=== PATIENT | female | born 1970 | race African-American/Black ===

== ENCOUNTER 2017-05-11 16:56 | Observation (INO) ==
--- NOTE | 2017-05-11 17:29 | Emergency Department Note ---
Disposition Clinical Impression: Elevated d-dimer Chest pain Qualifiers: Chest pain type: unspecified Qualified Code(s): R07.9 - Chest pain, unspecified Syncope Qualifiers: Syncope type: unspecified Qualified Code(s): R55 - Syncope and collapse Disposition: Admitted As Inpatient Condition: Undetermined Time of Disposition: 20:16 General Adult HPI - General Chief complaint: ED Fall Stated complaint: dizzy Time Seen by Provider: 05/11/17 17:11 Source: patient, family Mode of arrival: ambulatory Limitations: no limitations Nursing Notes Reviewed: Yes Vital Signs Reviewed: Yes - History of Present Illness HPI Narrative: 47-year-old female with history of hypertension, hyperlipidemia, diabetes, arrives to [facility] emergency department after having a syncopal episode when she was getting out of bed earlier today. The patient states that she fell on her right side. No LOC. She is complaining of right shoulder pain and right foot pain. The patient does not understand why she blacked out and she says that she is very nervous. The patient states that she has been experiencing a retrosternal chest pain since then. She does have some associated dyspnea. She denies any other complaints at this time. The patient denies any other previous history of [place] but states that she is a very poorly controlled hypertensive and diabetic. The patient denies any other complaints including loss of consciousness, unilateral leg swelling, recent surgeries, recent immobilizations, unilateral weakness, unilateral numbness and tingling. 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[employer] Pain Severity: moderate Pain Scale: 10 Quality: aching Consistency: constant Improves with: nothing Worsens with: nothing Associated symptoms: Reports: chest pain, shortness of breath Treatments Prior to Arrival: none - Related Data Home Medications Medication Instructions Recorded Confirmed Ferrous Sulfate 325 mg PO TID 02/03/15 05/11/17 Linaclotide [Linzess] 145 mcg PO DAILY 02/03/15 05/11/17 Metoprolol [Lopressor] 50 mg PO BID 02/03/15 05/11/17 Pantoprazole Sodium [Protonix] 40 mg PO DAILY 02/03/15 05/11/17 Atorvastatin [Lipitor] 40 mg PO DAILY 07/01/15 05/11/17 Ergocalciferol (VITAMIN D2) 50,000 unit PO QWEEK 07/01/15 05/11/17 [Vitamin D2 (50,000 UNIT)] Lisinopril [Zestril] 10 mg PO DAILY 07/01/15 05/11/17 Fluticasone Propionate Nasal 50 mcg NS DAILY 08/14/15 05/11/17 [Flonase] Polyethylene Glycol 3350 [MiraLAX] 17 gm PO DAILY 08/14/15 05/11/17 Oxycodone HCl/Acetaminophen 1 tab PO Q6HR PRN 05/11/17 05/11/17 [Percocet 5-325 mg Tablet] Previous Rx's Medication Instructions Recorded Albuterol Sulfate [Albuterol 1 - 2 puff IH Q4HR PRN #1 03/27/15 Inhaler] hfa.aer.ad NIFEdipine [Procardia] 20 mg PO TID #30 capsule 07/03/15 Insulin Glargine [Lantus] 25 unit SQ QAM 30 Days mls 08/19/15 Magnesium Oxide [Mag-Ox] 400 mg PO BID #60 tablet 08/19/15 clonazePAM [Klonopin] 1 mg PO TID #30 tablet 08/19/15 Tramadol HCl [Ultram] 50 mg PO Q6HR PRN #20 tab 07/21/16 Allergies Allergy/AdvReac Type Severity Reaction Status Date / Time acetaminophen [From Tylenol] AdvReac Gastrointestinal Verified 05/11/17 17:03 Upset aspirin AdvReac Gastrointestinal Verified 05/11/17 17:03 Upset All systems ED: reviewed and negative except as stated. Constitutional: Denies: fever, chills, weakness ENT ED: Denies: congestion Cardiovascular: Reports: chest pain. Denies: dyspnea on exertion, edema Respiratory: Reports: dyspnea. Denies: cough, wheezes Gastrointestinal: Denies: abdominal pain, nausea, vomiting, diarrhea, constipation, melena Genitourinary: Denies: dysuria Musculoskeletal: Reports: arthralgia. Denies: back pain, neck pain, myalgia Integumentary: Denies: rash Neurological: Denies: headache, numbness Past Medical History - Past Medical History Attestation: Yes The following information was validated with the patient. 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 - Social History Smoking Status: Current every day smoker Smokeless Tobacco Status: No Alcohol use: Reports: none Drug use: Reports: none Physical Exam - General Limitations: no limitations General appearance: alert, in no apparent distress - Head Head exam: atraumatic, normocephalic, normal inspection - Eye Eye exam: Present: normal appearance, PERRL, EOMI - ENT ENT exam: normal exam, normal oropharynx, mucous membranes moist - Neck Neck exam: Present: normal inspection, full ROM, trachea midline - Chest Chest inspection: Present: normal inspection, symmetric chest wall rise - Respiratory Respiratory exam: Present: normal lung sounds bilaterally - Cardiovascular Cardiovascular exam: Present: regular rate, normal rhythm, normal heart sounds - Abdominal Exam Abdominal exam: Present: soft, Non-Tender. Absent: tenderness, distention, guarding, rebound, rigidity - Extremities Exam Extremities exam: Present: normal inspection, full ROM, tenderness (Right shoulder pain, Right heel pain). Absent: pedal edema Course Vital Signs Temperature 98.9 F 05/11/17 16:58 Pulse Rate 84 05/11/17 16:58 Respiratory Rate 16 05/11/17 16:58 Blood Pressure 110/77 05/11/17 16:58 O2 Sat by Pulse Oximetry 97 05/11/17 16:58 Temperature 98.2 F 05/11/17 22:24 Pulse Rate 83 05/11/17 22:24 Respiratory Rate 15 05/11/17 22:24 Blood Pressure 132/89 05/11/17 22:24 O2 Sat by Pulse Oximetry 95 05/11/17 22:24 Oxygen Delivery Oxygen Delivery Room Air Medical Decision Making - [facility] Narrative Medical decision making narrative: Patient's lab work demonstrates an elevated d-dimer. The patient's CBC, BMP, troponin are all negative at this time. EKG demonstrates no acute findings. The patient's elevated d-dimer is concerning for possible PE. Given the patient was experiencing chest pain as well as a syncopal episode. The patient is unable to receive a CTA of the chest due to the patient's poor renal function. The patient was hydrated and started on heparin. We feels though the patient needs to receive a VQ scan but given the time of day and the fact that I am admitting the patient for an ACS rule out with the patient's chest pain given her risk factors and her score greater than 3, I feel as though the patient to be heparinized and receive a VQ scan tomorrow. The patient had no obvious concerns for bleeding at this time. The patient was in agreement with the plan. Her right shoulder x-ray as well as her right foot x-ray demonstrated no acute findings. We will admit the patient to the hospitalist at this time, accepted by - Lab Data Lab results reviewed: Yes I reviewed the patient's lab results. Result diagrams: 05/11/17 17:25 05/11/17 17:25 Lab Results 05/11/17 05/11/17 05/11/17 Range/Units 17:03 17:25 17:25 WBC 10.3 (4.3-11.1) K/mcL RBC 5.61 H (3.82-4.97) M/mcL Hgb 13.0 (11.5-15.4) g/dL Hct 42.7 (35.3-44.9) % MCV 76.1 L (83.0-100.0) fL MCH 23.2 L (28.0-33.3) pg MCHC 30.4 L (31.6-35.5) g/dL RDW 15.9 H (11.5-14.5) % Plt Count 224 (140-400) K/mcL MPV 11.3 (9.4-12.4) fL Immature Gran % 0.2 (0-4) % Seg Neutrophils % 62.6 % Lymphocytes % 30.2 % Monocytes % 4.9 % Eosinophils % 1.6 % Basophils % 0.5 % Neutrophils # 6.5 (1.6-8.9) K/mcL Lymphocytes # 3.1 (0.6-4.6) K/mcL Monocytes # 0.5 (0.0-1.3) K/mcL Eosinophils # 0.2 (0.0-0.6) K/mcL Basophils # 0.1 (0.0-0.2) K/mcL PT (9.4-12.1) Seconds INR APTT (26.0-36.0) Seconds D-Dimer (0-500) ng/mLFEU Sodium 136 (136-145) mEq/L Potassium 3.9 (3.5-4.5) mEq/L Chloride 102 (98-109) mEq/L Carbon Dioxide 21 (19-29) mEq/L BUN 37 H (7-20) mg/dL Creatinine 2.11 H (0.57-1.11) mg/dL Est GFR ( Amer) 30 L (> 60) Est GFR (Non-Af Amer) 25 L (> 60) BUN/Creatinine Ratio 18 (6-26) Glucose 223 H (70-99) mg/dL POC Glucose 238 H (58-89) Calculated Osmolality 298 (280-300) Calcium 9.9 (8.6-10.8) mg/dL Troponin I (0-0.03) ng/mL 05/11/17 05/11/17 Range/Units 17:25 17:28 WBC (4.3-11.1) K/mcL RBC (3.82-4.97) M/mcL Hgb (11.5-15.4) g/dL Hct (35.3-44.9) % MCV (83.0-100.0) fL MCH (28.0-33.3) pg MCHC (31.6-35.5) g/dL RDW (11.5-14.5) % Plt Count (140-400) K/mcL MPV (9.4-12.4) fL Immature Gran % (0-4) % Seg Neutrophils % % Lymphocytes % % Monocytes % % Eosinophils % % Basophils % % Neutrophils # (1.6-8.9) K/mcL Lymphocytes # (0.6-4.6) K/mcL Monocytes # (0.0-1.3) K/mcL Eosinophils # (0.0-0.6) K/mcL Basophils # (0.0-0.2) K/mcL PT 11.6 (9.4-12.1) Seconds INR 1.1 APTT 27.2 (26.0-36.0) Seconds D-Dimer 1149 H (0-500) ng/mLFEU Sodium (136-145) mEq/L Potassium (3.5-4.5) mEq/L Chloride (98-109) mEq/L Carbon Dioxide (19-29) mEq/L BUN (7-20) mg/dL Creatinine (0.57-1.11) mg/dL Est GFR ( Amer) (> 60) Est GFR (Non-Af Amer) (> 60) BUN/Creatinine Ratio (6-26) Glucose (70-99) mg/dL POC Glucose (58-89) Calculated Osmolality (280-300) Calcium (8.6-10.8) mg/dL Troponin I 0.01 (0-0.03) ng/mL - Radiology Data Radiology results reviewed: Yes I reviewed the patient's radiology results. - EKG Data EKG #1 EKG attestation: Yes I reviewed and interpreted this EKG. EKG results narrative: Heart rate 80 bpm. WI interval 176 ms. QTc 420 ms. Normal sinus rhythm. No ST elevation or ST depression noted. EKG is similar in appearance to EKG from 08/14/2015. No acute Changes noted. Attestation Statement - Attestation Attestation: I examined this patient and my medical decision-making was reviewed with the Resident Physician. I agree with the documented findings, disposition and treatment plan as described except to the extent set forth below. Findings consistent with syncope. D-dimer is elevated. We will empirically heparinized , admitted for VQ scan. Concurrently will admit for ACS rule out. She does have evidence of acute kidney injury and cannot undergo contrast mediated pulmonary embolism study.
[2017-05-11 17:43] LABS: Basophils # 0.1 K/mcL (0.0-0.2); Basophils % 0.5 %; Eosinophils # 0.2 K/mcL (0.0-0.6); Eosinophils % 1.6 %; Hematocrit 42.7 % (35.3-44.9); Immature Granulocytes % 0.2 % (0-4); Lymphocytes # 3.1 K/mcL (0.6-4.6); Lymphocytes % 30.2 %; Mean Corpuscular HGB Conc 30.4 g/dL (31.6-35.5); Mean Corpuscular Hemoglobin 23.2 pg (28.0-33.3); Mean Corpuscular Volume 76.1 fL (83.0-100.0); Mean Platelet Volume 11.3 fL (9.4-12.4); Monocytes # 0.5 K/mcL (0.0-1.3); Monocytes % 4.9 %; Neutrophils # 6.5 K/mcL (1.6-8.9); Platelet Count 224 K/mcL (140-400); Red Blood Count 5.61 M/mcL (3.82-4.97); Red Cell Distribution Width 15.9 % (11.5-14.5); Segmented Neutrophils % 62.6 %
[2017-05-11 17:52] LABS: Calcium 9.9 mg/dL (8.6-10.8); Potassium 3.9 mEq/L (3.5-4.5)
[2017-05-11] MEDS ORDERED: 0.9 % Sodium Chloride 1,000 ML IVC ONE (18:39)
[2017-05-11] MEDS ORDERED: *HR* Morphine 2 MG/ML SYRINGE IVP ONE (19:04)
[2017-05-11] MEDS ORDERED: *HR* Heparin 5,000 UNIT/ML VIAL IVP PRN ×2 (19:31)
[2017-05-11] MEDS ORDERED: *HR* Heparin 5,000 UNIT/ML VIAL IVP ONE (19:31)
[2017-05-11 19:44] LABS: INR 1.1; Prothrombin Time 11.6 Seconds (9.4-12.1)
[2017-05-11] MEDS ORDERED: Heparin 25,000 UNIT/500 ML D5W 25,000 UNIT/500 ML MLS IVC SCH (19:45)
[2017-05-11 19:47] LABS: Activated Partial Thrombo Time 27.2 Seconds (26.0-36.0)
[2017-05-12] MEDS ORDERED: D5% in Water 1,000 ML IVC PRN (02:16)
[2017-05-12] MEDS ORDERED: Dextrose Gel 15 GM PO PRN ×2 (02:16)
[2017-05-12] MEDS ORDERED: *HR* Dextrose 50 % in Water (Syg) 50 ML SYRINGE IVP PRN (02:16)
[2017-05-12] MEDS ORDERED: Naloxone 0.4 MG/ML INJ IVP PRN (02:17)
[2017-05-12] MEDS ORDERED: traMADol 50 MG TABLET PO PRN (02:21)
--- NOTE | 2017-05-12 02:26 | Internal Med History&Physical ---
Date of Encounter: 05/12/17 Time of Encounter: 02:24 Assessment and Plan (1) Syncope Current visit: Yes Status: Acute Presented with syncopal episode. Poor historian. Check MRI brain to rule out a stroke or aneurysm and echocardiogram to rule out cardiomyopathy or valvular abnormality, ultrasound of carotids to rule out carotid stenosis.. Check TSH. Check cardiac enzymes. Patient will be started on aspirin. Cardiac enzymes will be checked. Qualifiers: Syncope type: unspecified Qualified Code(s): R55 - Syncope and collapse (2) Diabetes type 2, uncontrolled Current visit: Yes Status: Acute Accu-Chek 4 times a day with sliding scale coverage Qualifiers: Diabetes mellitus complication status: with kidney complications Diabetes mellitus complication detail: with chronic kidney disease Diabetes mellitus longterm insulin use: with longterm use Chronic kidney disease stage: stage 3 (moderate) Qualified Code(s): E11.22 - Type 2 diabetes mellitus with diabetic chronic kidney disease; E11.65 - Type 2 diabetes mellitus with hyperglycemia; 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 Lisinopril and metformin on hold. Qualifiers: Chronic kidney disease stage: stage 3 (moderate) Qualified Code(s): N18.3 - Chronic kidney disease, stage 3 (moderate) Internal Medicine - H&P: HPI Chief complaint: Syncope Admitted From: Home Plans for Post Hospital Care: Home History of present illness: Ms. Mcnulty is a 47 year old female past medical history significant for diabetes hypertension dyslipidemia COPD and CKD. Patient had an episode this morning when she felt dizzy and then passed out. She had similar episode a few years back. Causes not known. She denies any headache neck pain and back pain shortness of breath. She did have mild chest discomfort. As she presented to ER her heart rate was in the 130s and her respiration was also elevated. ER physician was concerned about PE but due to elevated creatinine and did not want to do contrast CT chest. 4 he requested to do a VQ scan in the morning and restart patient on IV heparin for now. Apparently her EKG and cardiac enzymes in the ER are unremarkable. Past Med Surg Social Fam HX - Past Medical History Medical history: arthritis, COPD, diabetes, hepatitis, hyperlipidemia, hypertension, kidney stones, RA, renal disease, other Psychiatric history: anxiety, bipolar, depression, schizophrenia - Past Surgical History Surgical History: , other - Social History Smoking Status: Current every day smoker Packs per day: <1 Smokeless Tobacco Status: No Alcohol use: none Drug use: none - Family History Mother Adopted: No Family Member Ethnicity: Non- Living Status: Hx Family Cardiac Disorders: Yes (CHF) Hx Family Respiratory Disorders: No Hx Family Cancer: No Hx Family GI Disorders: No Father Adopted: No Family Member Ethnicity: Non- Living Status: Hx Family Cardiac Disorders: Yes (ID, HTN) Hx Family Respiratory Disorders: No Hx Family Cancer: No Hx Family GI Disorders: No Hx Family Endocrine Disorder: No Hx Family Neuromuscular Disorders: No Internal Medicine - H&P: Meds Ferrous Sulfate 325 mg PO TID 02/03/15 [History] Linaclotide [Linzess] 145 mcg PO DAILY 02/03/15 [History] Metoprolol [Lopressor] 50 mg PO BID 02/03/15 [History] Pantoprazole Sodium [Protonix] 40 mg PO DAILY 02/03/15 [History] Albuterol Sulfate [Albuterol Inhaler] 1 - 2 puff IH Q4HR PRN #1 hfa.aer.ad 03/27 [Rx] Atorvastatin [Lipitor] 40 mg PO DAILY 07/01/15 [History] Ergocalciferol (VITAMIN D2) [Vitamin D2 (50,000 UNIT)] 50,000 unit PO QWEEK [History] Lisinopril [Zestril] 10 mg PO DAILY 07/01/15 [History] NIFEdipine [Procardia] 20 mg PO TID #30 capsule 07/03/15 [Rx] Fluticasone Propionate Nasal [Flonase] 50 mcg NS DAILY 08/14/15 [History] Polyethylene Glycol 3350 [MiraLAX] 17 gm PO DAILY 08/14/15 [History] Insulin Glargine [Lantus] 25 unit SQ QAM 30 Days mls 08/19/15 [Rx] Magnesium Oxide [Mag-Ox] 400 mg PO BID #60 tablet 08/19/15 [Rx] clonazePAM [Klonopin] 1 mg PO TID #30 tablet 08/19/15 [Rx] Tramadol HCl [Ultram] 50 mg PO Q6HR PRN #20 tab 07/21/16 [Rx] Oxycodone HCl/Acetaminophen [Percocet 5-325 mg Tablet] 1 tab PO Q6HR PRN [History] 3 Allergy/AdvReac Type Severity Reaction Status Date / Time acetaminophen [From Tylenol] AdvReac Gastrointestinal Verified 05/11/17 17:03 Upset aspirin AdvReac Gastrointestinal Verified 05/11/17 17:03 Upset All Systems PM: A 10-system review of systems was performed and is negative for pertinent findings except as documented above in the HPI. - Constitutional Constitutional: no chills, no fever(s), no night sweats - EENT Eyes: no change in vision, no discharge, no pain, no photophobia Ears: no ear discharge, no ear pain, no tinnitus Nose, mouth and throat: no dysphagia, no nasal discharge, no neck pain, no sore throat - Cardiovascular Cardiovascular ROS IM: chest pain, lightheadedness, syncope, no diaphoresis, no dyspnea, no palpitations - Respiratory Respiratory: no cough, no dyspnea, no wheezing, no excessive phlegm production - Gastrointestinal Gastrointestinal: no abdominal pain, no diarrhea, no hematemesis, no hematochezia, no melena, no nausea, no vomiting - Genitourinary Genitourinary: no change in urinary stream, no dysuria, no flank pain, no hematuria - Musculoskeletal Musculoskeletal ROS IM: no numbness, no tingling - Integumentary Integumentary IM: no rash, no unusual bruising - Neurological Neurological ROS: no confusion, no convulsions, no focal weakness, no numbness, no tingling, no tremor(s) - Hematologic/Lymphatic Hematologic/Lymphatic: no easy bruising - Constitutional Vitals: Temp Pulse Resp BP Pulse Ox 98.2 F 83 15 132/89 95 05/11/17 22:24 05/11/17 22:24 05/11/17 22:24 05/11/17 22:24 05/11/17 22:24 General appearance: Present: A&O X 3, morbidly obese, answers questions appropriately - Head Head exam: Present: atraumatic, normocephalic - Eye Eye exam: Present: PERRL, conjuntiva pink, sclera anicteric Pupils: Present: PERRL - Neck Neck exam general surgery: Present: supple, trachea midline. Absent: lymphadenopathy - Respiratory Respiratory exam: Present: CTAB. Absent: accessory muscle use, rales, rhonchi, wheezes - Cardiovascular Cardiovascular exam: Present: RRR, +S1, +S2. Absent: diastolic murmur, gallop, rubs, systolic murmur - GI/Abdominal GI/Abdominal exam: Present: normal bowel sounds, soft, no peritoneal signs. Absent: distended, tenderness - Extremities Exam Extremities exam: Present: warm, radial pulses palpable and symmetrical. Absent : calf tenderness, cyanotic, pedal edema - Neurological Exam Neurological exam: Present: CN II-XII intact, oriented X3, no focal deficits. Absent: pronater drift, facial droop, speech deficit - Skin Skin exam: Present: dry, intact Internal Med - H&P Results - Labs CBC & Chem 7: 05/11/17 17:25 05/11/17 17:25
[2017-05-12 03:39] LABS: Eosinophils % 2.9 %; Immature Granulocytes % 0.2 % (0-4); Mean Corpuscular Volume 76.2 fL (83.0-100.0)
[2017-05-12 03:41] LABS: Basophils # 0.1 K/mcL (0.0-0.2); Basophils % 0.8 %; Eosinophils # 0.3 K/mcL (0.0-0.6); Hematocrit 37.2 % (35.3-44.9); Hemoglobin 11.4 g/dL (11.5-15.4); Immature Platelets 12.8 % (1.1-6.1); Lymphocytes # 4.5 K/mcL (0.6-4.6); Lymphocytes % 43.3 %; Mean Corpuscular HGB Conc 30.6 g/dL (31.6-35.5); Mean Corpuscular Hemoglobin 23.4 pg (28.0-33.3); Monocytes # 0.6 K/mcL (0.0-1.3); Monocytes % 5.4 %; Neutrophils # 4.9 K/mcL (1.6-8.9); Platelet Count 188 K/mcL (140-400); Red Blood Count 4.88 M/mcL (3.82-4.97); Red Cell Distribution Width 15.6 % (11.5-14.5); Segmented Neutrophils % 47.4 %
[2017-05-12] MEDS: Insulin LISPRO 300 UNITS/3 ML VIAL SQ SCH ×6 (03:45→20:38)
[2017-05-12] MEDS: clonazePAM 1 MG TABLET PO SCH ×2 (03:46→07:56)
[2017-05-12 03:51] LABS: Hemoglobin A1C 7.8 %
[2017-05-12 04:00] LABS: Potassium 3.7 mEq/L (3.5-4.5)
[2017-05-12 04:01] LABS: Albumin 2.9 g/dL (3.5-5.0); Albumin/Globulin Ratio 0.6 (1.1-2.2); Bilirubin,Total 0.3 mg/dL (0.2-1.2); Calcium 9.1 mg/dL (8.6-10.8); Globulin 4.6 g/dL (2.4-3.5); Total Protein 7.5 g/dL (6.0-8.3)
[2017-05-12 04:03] LABS: Platelet Estimate Normal (Normal)
[2017-05-12 04:04] LABS: Poikilocytosis 1+ (Not Present); Schistocytes 1+ (Not Present)
[2017-05-12 04:12] LABS: Thyroid Stimulating Hormone 0.544 mcIU/mL (0.350-4.840)
[2017-05-12 07:09] LABS: Activated Partial Thrombo Time > 360.0 Seconds (26.0-36.0)
[2017-05-12 07:22] LABS: Heparin anti-factor XA UFH 1.61 IU/mL (0.30-0.70)
[2017-05-12] MEDS: Magnesium Oxide 400 MG TABLET PO SCH ×2 (07:56→20:32)
[2017-05-12] MEDS: Fluticasone Propionate Nasal 50 MCG/SPRAY BOTTLE NS SCH (08:01)
[2017-05-12] MEDS: NIFEdipine 10 MG CAPSULE PO SCH ×3 (08:16→20:32)
[2017-05-12] MEDS ORDERED: clonazePAM 1 MG TABLET PO PRN (15:47)
--- NOTE | 2017-05-12 16:11 | Event Note ---
Date of Encounter: 05/12/17 Time of Encounter: 14:35 Patient is a morbidly obese 47y/o female admitted for evaluation of syncope Pt underwent MRI head, 2D echo, carotid dopplers V/Q scan was ordered due to elevated Ddimer, which reported low probability for PE due to which heparin gtt has been discontinued She is noted to be on multiple agents for BP control, all of which have been placed on hold, as her BP has remained within normal limits despite holding these medications. Pt may have had a syncopal episode secondary to drug induced hypotension Will restart all of patient's other home medications SHERIF resolved, renal function back to baseline Pt reports of diffuse weakness. Will obtain PT evaluation
[2017-05-12] MEDS: Gabapentin 400 MG CAPSULE PO SCH ×2 (17:54→20:38)
[2017-05-12] MEDS: Insulin DETEMIR 100 UNIT/ML X5UNITS SQ SCH (17:54)
[2017-05-12] MEDS: *HR* OxyCODONE/APAP 5/325 TABLET PO PRN (18:08)
--- NOTE | 2017-05-12 18:52 | Electrocardiograph Report ---
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
[2017-05-12] MEDS: *HR* Heparin 5,000 UNIT/ML VIAL SQ SCH (20:36)
[2017-05-12] MEDS ORDERED: (Loxapine Succinate [Loxapine] 25 MG) PO SCH (21:00)
[2017-05-12] MEDS ORDERED: traZODone 50 MG TABLET PO SCH (21:00)
[2017-05-13] MEDS: *HR* OxyCODONE/APAP 5/325 TABLET PO PRN ×3 (02:26→18:13)
[2017-05-13] MEDS: *HR* Heparin 5,000 UNIT/ML VIAL SQ SCH ×2 (06:10→18:08)
[2017-05-13 06:11] LABS: Basophils # 0.1 K/mcL (0.0-0.2); Basophils % 0.6 %; Eosinophils # 0.2 K/mcL (0.0-0.6); Eosinophils % 2.2 %; Immature Granulocytes % 0.2 % (0-4); Lymphocytes % 35.2 %; Mean Corpuscular HGB Conc 29.7 g/dL (31.6-35.5); Mean Corpuscular Hemoglobin 22.7 pg (28.0-33.3); Mean Corpuscular Volume 76.4 fL (83.0-100.0); Monocytes # 0.4 K/mcL (0.0-1.3); Neutrophils # 4.9 K/mcL (1.6-8.9); Platelet Count 184 K/mcL (140-400); Red Blood Count 4.84 M/mcL (3.82-4.97); Red Cell Distribution Width 15.5 % (11.5-14.5); Segmented Neutrophils % 56.8 %
[2017-05-13 06:23] LABS: Albumin 2.8 g/dL (3.5-5.0); Albumin/Globulin Ratio 0.6 (1.1-2.2); Bilirubin,Total 0.3 mg/dL (0.2-1.2); Calcium 9.1 mg/dL (8.6-10.8); Globulin 4.5 g/dL (2.4-3.5); Magnesium 1.4 mg/dL (1.6-2.6); Platelet Estimate Normal (Normal); Potassium 4.3 mEq/L (3.5-4.5); Total Protein 7.3 g/dL (6.0-8.3)
[2017-05-13] MEDS: Gabapentin 400 MG CAPSULE PO SCH ×2 (08:26→18:10)
[2017-05-13] MEDS: NIFEdipine 10 MG CAPSULE PO SCH ×2 (08:26→18:10)
[2017-05-13] MEDS: Insulin LISPRO 300 UNITS/3 ML VIAL SQ SCH ×3 (08:26→17:51)
[2017-05-13] MEDS: Magnesium Oxide 400 MG TABLET PO SCH (08:27)
[2017-05-13] MEDS: Fluticasone Propionate Nasal 50 MCG/SPRAY BOTTLE NS SCH (08:28)
[2017-05-13] MEDS: Insulin DETEMIR 100 UNIT/ML X5UNITS SQ SCH (08:33)
[2017-05-13 11:53] VITALS: BP 110/75
--- NOTE | 2017-05-13 11:58 | Discharge Summary ---
Date of Encounter: 05/13/17 Time of Encounter: 11:20 - Discharge Diagnosis (1) Syncope Priority: Primary Status: Resolved Qualifiers: Syncope type: unspecified Qualified Code(s): R55 - Syncope and collapse (2) Chronic kidney disease Priority: Secondary Status: Chronic Qualifiers: Chronic kidney disease stage: stage 3 (moderate) Qualified Code(s): N18.3 - Chronic kidney disease, stage 3 (moderate) (3) Diabetes type 2, uncontrolled Priority: Secondary Status: Chronic Qualifiers: Diabetes mellitus complication status: with kidney complications Diabetes mellitus complication detail: with chronic kidney disease Diabetes mellitus snf insulin use: with terminal operator use Chronic kidney disease stage: stage 3 (moderate) Qualified Code(s): E11.22 - Type 2 diabetes mellitus with diabetic chronic kidney disease; E11.65 - Type 2 diabetes mellitus with hyperglycemia; Z79.4 - correction (current) use of insulin; E11.65 - Type 2 diabetes mellitus with hyperglycemia; E11.65 - Type 2 diabetes mellitus with hyperglycemia; E11.65 - Type 2 diabetes mellitus with hyperglycemia; N18.3 - Chronic kidney disease, stage 3 (moderate); N18.3 - Chronic kidney disease, stage 3 (moderate); Z79.4 - terminologist (current) use of insulin; Z79.4 - correction (current) use of insulin; Z79.4 - correction (current) use of insulin (4) DVT prophylaxis Priority: Secondary Status: Acute (5) Morbid obesity Priority: Secondary Status: Chronic - Discharge Medications Home Medications: Ferrous Sulfate 325 mg PO BID 02/03/15 [History] Linaclotide [Linzess] 145 mcg PO DAILY 02/03/15 [History] Metoprolol [Lopressor] 50 mg PO BID 02/03/15 [History] Pantoprazole Sodium [Protonix] 40 mg PO DAILY 02/03/15 [History] Albuterol Sulfate [Albuterol Inhaler] 1 - 2 puff IH Q4HR PRN #1 hfa.aer.ad 03/27 [Rx] Atorvastatin [Lipitor] 40 mg PO HS 07/01/15 [History] Lisinopril [Zestril] 10 mg PO DAILY 07/01/15 [History] Fluticasone Propionate Nasal [Flonase] 50 mcg NS DAILY 08/14/15 [History] Polyethylene Glycol 3350 [MiraLAX] 17 gm PO DAILY 08/14/15 [History] Oxycodone HCl/Acetaminophen [Percocet 5-325 mg Tablet] 1 tab PO Q8H PRN [History] Albuterol Neb [Proventil Neb] 2.5 mg IH TID PRN 05/12/17 [History] Cholecalciferol (D-3) [Vitamin D] 1,000 unit PO DAILY 05/12/17 [History] Cyclobenzaprine [Flexeril] 10 mg PO TID PRN 05/12/17 [History] Docusate [Colace] 100 mg PO DAILY PRN 05/12/17 [History] Furosemide [Lasix] 40 mg PO DAILY PRN 05/12/17 [History] Gabapentin [Neurontin] 800 mg PO TID 05/12/17 [History] Insulin ASPART [Novolog Flexpen] 15 unit SQ TID 05/12/17 [History] Insulin Glargine [Lantus] 40 unit SQ QAM 05/12/17 [History] Loxapine Succinate [Loxapine] 25 mg PO HS 05/12/17 [History] Magnesium Oxide [Mag-Ox] 400 mg PO DAILY 05/12/17 [History] NIFEdipine [Nifedipine] 20 mg PO TID 05/12/17 [History] Ondansetron ODT [Zofran ODT] 4 mg PO Q8H PRN 05/12/17 [History] Potassium Chloride [Klor-Con 10] 10 meq PO DAILY 05/12/17 [History] clonazePAM [Klonopin] 1 mg PO QID PRN 05/12/17 [History] hydroCHLOROthiazide [Hydrochlorothiazide] 25 mg PO DAILY 05/12/17 [History] traZODone [TraZODone] 50 mg PO HS 05/12/17 [History] Allergies/Adverse Reactions: 3 Allergy/AdvReac Type Severity Reaction Status Date / Time acetaminophen [From Tylenol] AdvReac Gastrointestinal Verified 05/11/17 17:03 Upset aspirin AdvReac Gastrointestinal Verified 05/11/17 17:03 Upset Procedures/tests Complete & Pending: Procedures Performed prior 72 hours Category Date Time Status VQ Scan [NM pul vent and perfuse] [NM] Routine Exams 05/12/17 02:23 Completed MR head/brain wo con [MR] Routine MRI 05/12/17 02:16 Completed EV carotid duplex imaging BI Routine Y 05/12/17 02:14 Completed EV echocardiogram Routine Y 05/12/17 02:14 Completed Date of admission: 05/11/17 20:57 Primary care physician: Peyman Neves DO Consults: 05/12/17 16:10 Consult to Physical Therapy [CONS] Routine Comment: Evaluate, develop and implement POC Reason for Consult: evaluate for placement Discharging clinician: Michelle Higgins Anticipated date of discharge: 05/13/17 - Patient Status Disposition: Home, Self-Care Condition: Good Functional capacity at discharge: independent ambulation Overall status at discharge: patient is back to baseline - Discharge Instructions Follow Up With: Stephen Mayorga [Non-Partnered Physician] - 05/23/17 9:00 am Additional Instructions: Please follow up with your primary care physician within five days after your discharge from the hospital. Please closely monitor your blood pressure at home. Continue to hold lisinopril until your follow up with your primary care physician. Please hold your blood pressure medications if you are noted to have systolic blood pressure less than 100. Resume all your other home medications as per your primary care physician. - Diet and Activity Activity: increase activity as tolerated Diet: low salt diet Hospital course: Ms. Mcnulty is a 47 year old female with PMH of arthritis, DM, morbid obesity, HTN, HLD, CKD, COPD who was admitted for syncope. Her cardio and neuro work up was negative however was noted to have SHERIF On CKD due to which home dose of Lisinopril was held. Her renal function returned to baseline. No recurrent syncopal episodes reported. Pt may have had hypotension induced syncope as her BP has remained within acceptable range despite holding Lisinopril. Pt was evaluated by physical therapy and home health was recommended, however patient refused home health services. At this time she is hemodynamically stable and will be discharged to home with follow up with PCP. She was also noted to have elevated D-dimer and was initially started on heaprin gtt, V/Q scan was negative for PE and heparin was discontinued. - Time Spent with Patient Total time spent providing and/or coordinating discharge services: Less than 30 minutes - Constitutional Vitals: Temp Pulse Resp BP Pulse Ox 98.2 F 77 16 110/75 93 05/13/17 11:49 05/13/17 11:49 05/13/17 11:49 05/13/17 11:49 05/13/17 11:49 General appearance: Present: A&O X 3, morbidly obese, no acute distress, answers questions appropriately - Head Head exam: Present: atraumatic, normocephalic - Eye Eye exam: Present: conjuntiva pink, sclera anicteric - Respiratory Respiratory exam: Present: CTAB. Absent: respiratory distress, wheezes - Cardiovascular Cardiovascular exam: Present: RRR, +S1, +S2. Absent: diastolic murmur, gallop, rubs, systolic murmur - GI/Abdominal GI/Abdominal exam: Present: normal bowel sounds, soft, no peritoneal signs. Absent: distended, tenderness - Extremities Exam Extremities exam: Present: warm, radial pulses palpable and symmetrical. Absent : calf tenderness, cyanotic, pedal edema - Neurological Exam Neurological exam: Present: alert, oriented X3
--- NOTE | 2017-05-13 18:42 | Physician Discharge Referral ---
Home Health/Hosp Referral Info Transfer to: Home Health Provider in Charge Post Discharge: PCP - Diagnosis (1) Syncope Priority: Primary Status: Resolved (2) Chronic kidney disease Priority: Secondary Status: Chronic (3) Diabetes type 2, uncontrolled Priority: Secondary Status: Chronic (4) DVT prophylaxis Priority: Secondary Status: Acute (5) Morbid obesity Priority: Secondary Status: Chronic - Respiratory Orders Smoking Cessation: Smoking cessation has been advised. For more information, call the [place] Tobacco Quit Line at 5-664-ANWD-NOW. - Services Needed Following services are medically necessary services: Home Health Aide, Physical Therapy, Occupational Therapy - Transfer Medications Home Medications: Ferrous Sulfate 325 mg PO BID 02/03/15 [History] Linaclotide [Linzess] 145 mcg PO DAILY 02/03/15 [History] Metoprolol [Lopressor] 50 mg PO BID 02/03/15 [History] Pantoprazole Sodium [Protonix] 40 mg PO DAILY 02/03/15 [History] Albuterol Sulfate [Albuterol Inhaler] 1 - 2 puff IH Q4HR PRN #1 hfa.aer.ad 03/27 [Rx] Atorvastatin [Lipitor] 40 mg PO HS 07/01/15 [History] Lisinopril [Zestril] 10 mg PO DAILY 07/01/15 [History] Fluticasone Propionate Nasal [Flonase] 50 mcg NS DAILY 08/14/15 [History] Polyethylene Glycol 3350 [MiraLAX] 17 gm PO DAILY 08/14/15 [History] Oxycodone HCl/Acetaminophen [Percocet 5-325 mg Tablet] 1 tab PO Q8H PRN [History] Albuterol Neb [Proventil Neb] 2.5 mg IH TID PRN 05/12/17 [History] Cholecalciferol (D-3) [Vitamin D] 1,000 unit PO DAILY 05/12/17 [History] Cyclobenzaprine [Flexeril] 10 mg PO TID PRN 05/12/17 [History] Docusate [Colace] 100 mg PO DAILY PRN 05/12/17 [History] Furosemide [Lasix] 40 mg PO DAILY PRN 05/12/17 [History] Gabapentin [Neurontin] 800 mg PO TID 05/12/17 [History] Insulin ASPART [Novolog Flexpen] 15 unit SQ TID 05/12/17 [History] Insulin Glargine [Lantus] 40 unit SQ QAM 05/12/17 [History] Loxapine Succinate [Loxapine] 25 mg PO HS 05/12/17 [History] Magnesium Oxide [Mag-Ox] 400 mg PO DAILY 05/12/17 [History] NIFEdipine [Nifedipine] 20 mg PO TID 05/12/17 [History] Ondansetron ODT [Zofran ODT] 4 mg PO Q8H PRN 05/12/17 [History] Potassium Chloride [Klor-Con 10] 10 meq PO DAILY 05/12/17 [History] clonazePAM [Klonopin] 1 mg PO QID PRN 05/12/17 [History] hydroCHLOROthiazide [Hydrochlorothiazide] 25 mg PO DAILY 05/12/17 [History] traZODone [TraZODone] 50 mg PO HS 05/12/17 [History] Allergies/Adverse Reactions: 3 Allergy/AdvReac Type Severity Reaction Status Date / Time acetaminophen [From Tylenol] AdvReac Gastrointestinal Verified 05/11/17 17:03 Upset aspirin AdvReac Gastrointestinal Verified 05/11/17 17:03 Upset Certification: Further, I certify that my clinical findings support that this patient is homebound (i.e. absences from home require considerable and taxing effort and are for medical reasons or buddhist services or infrequently or short duration when for other reasons) because: Homebound Reason: Patient requires assistance of a person or device to safely leave home Attestation: My signature below is to certify that this patient is under my care and that I, or nurse practitioner, or a physician's news assistant working with me, has a face-to -face encounter with this patient.
== END 2017-05-13 18:50 | disposition home or self-care (01) ==
LOC: EMEROO 16:56 → 2NENU 16:56
PROVIDERS: ADMIT Internal Medicine; ATTEND Internal Medicine

== ENCOUNTER 2019-07-20 16:15 | Observation (INO) ==
[2019-07-20] MEDS ORDERED: Aspirin 325 MG TABLET PO ONE (16:38)
[2019-07-20] MEDS ORDERED: Isovue-370 500 ML BOTTLE IVP ONE ×2 (16:38→16:48)
[2019-07-20] MEDS ORDERED: *HR* FentaNYL (PF) 100 MCG/2 ML VIAL IVP ONE (16:46)
[2019-07-20] MEDS ORDERED: 0.9 % Sodium Chloride 1,000 ML IVC SCH ×2 (17:00→22:30)
[2019-07-20 17:02] LABS: Basophils % 0.4 %; Eosinophils % 2.4 %; Hematocrit 43.1 % (35.3-44.9); Hemoglobin 12.8 g/dL (11.5-15.4); Immature Granulocytes % 0.3 % (0-4); Lymphocytes % 33.7 %; Mean Corpuscular HGB Conc 29.7 g/dL (31.6-35.5); Mean Corpuscular Hemoglobin 22.3 pg (28.0-33.3); Mean Corpuscular Volume 75.2 fL (83.0-100.0); Monocytes # 0.5 K/mcL (0.0-1.3); Monocytes % 4.9 %; Platelet Count 230 K/mcL (140-400); Red Blood Count 5.73 M/mcL (3.82-4.97); Segmented Neutrophils % 58.3 %; White Blood Count 10.2 K/mcL (4.3-11.1)
[2019-07-20 17:11] LABS: Eosinophils # 0.2 K/mcL (0.0-0.6); Lymphocytes # 3.4 K/mcL (0.6-4.6)
[2019-07-20 17:14] LABS: Platelet Estimate Normal (Normal)
[2019-07-20 17:16] LABS: Hypochromasia Present (Not Present); Microcytosis Present (Not Present); Schistocytes 1+ (Not Present)
[2019-07-20 17:58] LABS: BUN/Creatinine Ratio 21 (6-26); Blood Urea Nitrogen 39 mg/dL (6-20); Calcium 9.7 mg/dL (8.6-10.3); Carbon Dioxide 22 mEq/L (23-29); Chloride 103 mEq/L (98-107); Glucose 284 mg/dL (70-105); Osmolality,Calculated 296 (280-300); Potassium 4.2 mEq/L (3.5-5.1); Sodium 133 mEq/L (136-145); eGFR For African Americans 35 (> 60); eGFR For Non-African Americans 29 (> 60)
[2019-07-20 18:22] LABS: Troponin I < 0.03 ng/mL (< 0.04)
[2019-07-20] MEDS ORDERED: Naloxone 0.4 MG/ML INJ IVP PRN (22:16)
[2019-07-20] MEDS ORDERED: Insulin DETEMIR 100 UNIT/ML X5UNITS SQ SCH (23:45)
[2019-07-20] MEDS ORDERED: D5% in Water 1,000 ML IVC PRN (23:48)
[2019-07-20] MEDS ORDERED: Dextrose Gel 15 GM/37.5 ML TUBE PO PRN ×2 (23:48)
[2019-07-20] MEDS ORDERED: *HR* Dextrose 50 % in Water (Syg) 50 ML SYRINGE IVP PRN (23:48)
[2019-07-21] MEDS ORDERED: *HR* OxyCODONE ER (12 HR) 10 MG TABLET PO PRN ×2 (00:40→02:19)
[2019-07-21] MEDS ORDERED: Albuterol 2.5 MG/3 ML NEBULIZER IH PRN (00:49)
[2019-07-21] MEDS ORDERED: Melatonin 3 MG TABLET PO SCH (02:15)
[2019-07-21] MEDS: Gabapentin 400 MG CAPSULE PO SCH ×2 (02:24→09:30)
[2019-07-21] MEDS: Insulin LISPRO 300 UNITS/3 ML VIAL SQ SCH ×4 (02:26→17:11)
[2019-07-21 06:36] LABS: Prothrombin Time 11.6 Seconds (9.4-12.1)
[2019-07-21 06:38] LABS: Activated Partial Thrombo Time 32.6 Seconds (26.0-36.0)
[2019-07-21 06:43] LABS: Basophils % 0.8 %; Monocytes % 6.5 %
[2019-07-21 06:44] LABS: Basophils # 0.1 K/mcL (0.0-0.2); Eosinophils # 0.3 K/mcL (0.0-0.6); Eosinophils % 3.6 %; Hematocrit 41.1 % (35.3-44.9); Hemoglobin 12.3 g/dL (11.5-15.4); Immature Granulocytes % 0.1 % (0-4); Immature Platelets 9.5 % (1.1-6.1); Lymphocytes # 3.4 K/mcL (0.6-4.6); Lymphocytes % 38.2 %; Mean Corpuscular HGB Conc 29.9 g/dL (31.6-35.5); Mean Corpuscular Hemoglobin 21.9 pg (28.0-33.3); Mean Corpuscular Volume 73.3 fL (83.0-100.0); Monocytes # 0.6 K/mcL (0.0-1.3); Neutrophils # 4.5 K/mcL (1.6-8.9); Platelet Count 195 K/mcL (140-400); Red Blood Count 5.61 M/mcL (3.82-4.97); Segmented Neutrophils % 50.8 %; White Blood Count 8.9 K/mcL (4.3-11.1)
[2019-07-21] MEDS: *HR* Heparin 5,000 UNIT/ML VIAL SQ SCH ×2 (06:50→14:55)
[2019-07-21 06:56] LABS: Alanine Aminotransferase 30 Units/L (7-52); Albumin 3.6 g/dL (3.5-5.7); Albumin/Globulin Ratio 0.9 (1.1-2.2); Alkaline Phosphatase 67 Units/L (34-104); Aspartate Amino Transferase 21 Units/L (13-39); BUN/Creatinine Ratio 23 (6-26); Bilirubin,Total 0.3 mg/dL (0.3-1.0); Blood Urea Nitrogen 37 mg/dL (6-20); Calcium 9.3 mg/dL (8.6-10.3); Carbon Dioxide 22 mEq/L (23-29); Chloride 106 mEq/L (98-107); Glucose 162 mg/dL (70-105); Osmolality,Calculated 300 (280-300); Potassium 4.3 mEq/L (3.5-5.1); Sodium 139 mEq/L (136-145); Total Protein 7.6 g/dL (6.4-8.9); Troponin I < 0.03 ng/mL (< 0.04); eGFR For African Americans 42 (> 60); eGFR For Non-African Americans 34 (> 60)
[2019-07-21] MEDS ORDERED: Perflutren Lipid Microsphere 1.3 ML in 0.9 % Sodium Chloride 8.7 ML IVP ONE (07:17)
[2019-07-21 07:33] LABS: Anisocytosis 1+ (Not Present)
[2019-07-21 07:34] LABS: Hypochromasia Present (Not Present); Microcytosis Present (Not Present); Platelet Estimate Normal (Normal)
[2019-07-21] MEDS ORDERED: Nicotine 21 MG PATCH.TD24 TD SCH (11:00)
[2019-07-21] MEDS ORDERED: *HR* Dextrose 50 % in Water (Syg) 50 ML SYRINGE IVP PRN (12:01)
[2019-07-21] MEDS ORDERED: Dextrose Gel 15 GM/37.5 ML TUBE PO PRN ×2 (12:01)
[2019-07-21] MEDS ORDERED: D5% in Water 1,000 ML IVC PRN (12:01)
[2019-07-21] MEDS ORDERED: Fluticasone Propionate Nasal 50 MCG/SPRAY BOTTLE NS PRN (12:06)
[2019-07-21] MEDS ORDERED: Clotrimazole 1% CRM 15 GM TUBE TP PRN (12:06)
[2019-07-21] MEDS ORDERED: hydrOXYzine pamoate 25 MG CAPSULE PO PRN (12:06)
[2019-07-21] MEDS ORDERED: Ammonium Lactate 30 APPL/225 GM BOTTLE TP PRN (12:06)
[2019-07-21] MEDS ORDERED: Furosemide 40 MG TABLET PO PRN (12:06)
[2019-07-21] MEDS ORDERED: BuPROPion XL (24 HR) 150 MG TABLET PO SCH (12:15)
[2019-07-21] MEDS ORDERED: Gabapentin 300 MG CAPSULE PO SCH (15:00)
[2019-07-21] MEDS ORDERED: NIFEdipine 10 MG CAPSULE PO SCH (15:00)
[2019-07-21 17:10] VITALS: BP 106/63
[2019-07-21] MEDS ORDERED: Insulin LISPRO 300 UNITS/3 ML VIAL SQ SCH (21:00)
[2019-07-22] MEDS ORDERED: hydroCHLOROthiazide 25 MG TABLET PO SCH (09:00)
[2019-07-22] MEDS ORDERED: Venlafaxine XR (24 HR) 75 MG CAP.ER.24H PO SCH (09:00)
[2019-07-22] MEDS ORDERED: Prenatal Vit/FA 1 EACH TABLET PO SCH (09:00)
[2019-07-22] MEDS ORDERED: Cholecalciferol (D-3) 1,000 UNIT (25MCG) TABLET PO SCH (09:00)
[2019-07-22] MEDS ORDERED: Doxycycline 100 MG CAPSULE PO SCH (12:00)
== END 2019-07-21 18:55 | disposition home or self-care (01) ==
LOC: 2ANU 16:15 → EMEROOARM 16:15 → SUATTDRO 20:53 → 2ANU 22:06
PROVIDERS: ADMIT Internal Medicine; ATTEND Family Medicine

== ENCOUNTER 2019-07-28 16:22 | Observation (INO) ==
[2019-07-28] MEDS ORDERED: 0.9 % Sodium Chloride 500 ML IVC ONE (16:30)
[2019-07-28] MEDS ORDERED: Hydrocortisone Sodium Succ 100 MG/2 ML VIAL IVP ONE (16:51)
[2019-07-28 16:57] LABS: Immature Granulocytes % 0.2 % (0-4); Red Cell Distribution Width 15.9 % (11.5-14.5)
[2019-07-28 16:59] LABS: Basophils # 0.1 K/mcL (0.0-0.2); Basophils % 0.8 %; Eosinophils # 0.4 K/mcL (0.0-0.6); Eosinophils % 4.3 %; Immature Platelets 7.6 % (1.1-6.1); Lymphocytes # 3.4 K/mcL (0.6-4.6); Lymphocytes % 33.4 %; Mean Corpuscular HGB Conc 29.7 g/dL (31.6-35.5); Mean Corpuscular Volume 74.1 fL (83.0-100.0); Monocytes % 5.4 %; Neutrophils # 5.7 K/mcL (1.6-8.9); Platelet Count 192 K/mcL (140-400); Red Blood Count 4.99 M/mcL (3.82-4.97); Segmented Neutrophils % 55.9 %; White Blood Count 10.1 K/mcL (4.3-11.1)
[2019-07-28 17:05] LABS: Monocytes # 0.6 K/mcL (0.0-1.3); Prothrombin Time 11.8 Seconds (9.4-12.1)
[2019-07-28 17:07] LABS: Activated Partial Thrombo Time 30.9 Seconds (26.0-36.0)
[2019-07-28 17:20] LABS: BUN/Creatinine Ratio 21 (6-26); Blood Urea Nitrogen 43 mg/dL (6-20); Calcium 9.6 mg/dL (8.6-10.3); Carbon Dioxide 20 mEq/L (23-29); Chloride 107 mEq/L (98-107); Glucose 190 mg/dL (70-105); Osmolality,Calculated 298 (280-300); Potassium 4.5 mEq/L (3.5-5.1); Sodium 136 mEq/L (136-145); Troponin I < 0.03 ng/mL (< 0.04); eGFR For African Americans 31 (> 60); eGFR For Non-African Americans 26 (> 60)
[2019-07-28] MEDS: 0.9 % Sodium Chloride 1,000 ML IVC ONE ×2 (17:34→17:48)
[2019-07-28] MEDS ORDERED: Aspirin 325 MG TABLET PO ONE (19:07)
[2019-07-28] MEDS ORDERED: Naloxone 0.4 MG/ML INJ IVP PRN (19:42)
[2019-07-28] MEDS ORDERED: D5% in Water 1,000 ML IVC PRN (19:45)
[2019-07-28] MEDS ORDERED: Dextrose Gel 15 GM/37.5 ML TUBE PO PRN ×2 (19:45)
[2019-07-28] MEDS ORDERED: 0.9 % Sodium Chloride 1,000 ML IVC SCH (19:45)
[2019-07-28] MEDS ORDERED: Insulin LISPRO 300 UNITS/3 ML VIAL SQ SCH (19:45)
[2019-07-28] MEDS ORDERED: *HR* Dextrose 50 % in Water (Syg) 50 ML SYRINGE IVP PRN (19:45)
[2019-07-28] MEDS ORDERED: Albuterol 2.5 MG/3 ML NEBULIZER IH PRN (20:26)
[2019-07-28] MEDS: Insulin DETEMIR 100 UNIT/ML X5UNITS SQ SCH (23:01)
[2019-07-28] MEDS ORDERED: Melatonin 3 MG TABLET PO PRN (23:31)
[2019-07-28] MEDS ORDERED: Fluticasone Propionate Nasal 50 MCG/SPRAY BOTTLE NS PRN (23:31)
[2019-07-28] MEDS ORDERED: Ammonium Lactate 30 APPL/225 GM BOTTLE TP PRN (23:31)
[2019-07-29] MEDS: *HR* Heparin 5,000 UNIT/ML VIAL SQ SCH ×4 (01:09→21:19)
[2019-07-29 01:44] LABS: Hemoglobin 11.1 g/dL (11.5-15.4); Mean Corpuscular Hemoglobin 22.4 pg (28.0-33.3); Mean Corpuscular Volume 74.7 fL (83.0-100.0); Platelet Count 188 K/mcL (140-400); Red Blood Count 4.95 M/mcL (3.82-4.97); Red Cell Distribution Width 15.9 % (11.5-14.5); White Blood Count 9.5 K/mcL (4.3-11.1)
[2019-07-29 02:01] LABS: Calcium 9.1 mg/dL (8.6-10.3)
[2019-07-29] MEDS ORDERED: Pantoprazole 40 MG VIAL IVP ONE (02:20)
[2019-07-29] MEDS ORDERED: Insulin LISPRO 300 UNITS/3 ML VIAL SQ SCH ×2 (06:00→21:00)
[2019-07-29] MEDS ORDERED: Acetaminophen 325 MG TABLET PO PRN (06:25)
[2019-07-29] MEDS ORDERED: Regadenoson 0.4 MG/5 ML SYRINGE IVP ONE (06:53)
[2019-07-29] MEDS: Cholecalciferol (D-3) 1,000 UNIT (25MCG) TABLET PO SCH (09:18)
[2019-07-29] MEDS: Venlafaxine XR (24 HR) 75 MG CAP.ER.24H PO SCH (09:19)
[2019-07-29] MEDS: Ondansetron 4 MG/2 ML VIAL IVP PRN ×2 (09:59→16:20)
[2019-07-29] MEDS: Insulin LISPRO 300 UNITS/3 ML VIAL SQ SCH ×2 (11:55→17:13)
[2019-07-29] MEDS ORDERED: Furosemide 40 MG TABLET PO PRN (12:10)
[2019-07-29] MEDS ORDERED: hydrOXYzine pamoate 25 MG CAPSULE PO PRN (12:10)
[2019-07-29] MEDS: Gabapentin 300 MG CAPSULE PO SCH ×2 (13:34→21:21)
[2019-07-29] MEDS: BuPROPion XL (24 HR) 150 MG TABLET PO SCH (13:34)
[2019-07-29] MEDS: NIFEdipine 10 MG CAPSULE PO SCH ×2 (13:34→21:20)
[2019-07-29] MEDS: Insulin DETEMIR 100 UNIT/ML X5UNITS SQ SCH (21:39)
[2019-07-29] MEDS ORDERED: Nicotine 2 MG GUM BC PRN (22:10)
[2019-07-29] MEDS: Nicotine 21 MG PATCH.TD24 TD SCH (22:20)
[2019-07-30] MEDS: *HR* Heparin 5,000 UNIT/ML VIAL SQ SCH (05:45)
[2019-07-30] MEDS: Insulin LISPRO 300 UNITS/3 ML VIAL SQ SCH ×2 (07:50→12:43)
[2019-07-30] MEDS: Venlafaxine XR (24 HR) 75 MG CAP.ER.24H PO SCH (08:05)
[2019-07-30] MEDS: Gabapentin 300 MG CAPSULE PO SCH (08:05)
[2019-07-30] MEDS: Cholecalciferol (D-3) 1,000 UNIT (25MCG) TABLET PO SCH (08:06)
[2019-07-30] MEDS: NIFEdipine 10 MG CAPSULE PO SCH (08:06)
[2019-07-30] MEDS: BuPROPion XL (24 HR) 150 MG TABLET PO SCH (08:06)
[2019-07-30] MEDS: Ondansetron 4 MG/2 ML VIAL IVP PRN (08:07)
[2019-07-30] MEDS: Nicotine 21 MG PATCH.TD24 TD SCH (08:07)
[2019-07-30] MEDS ORDERED: Magnesium Oxide 400 MG TABLET PO SCH (09:00)
[2019-07-30 09:21] LABS: Hemoglobin 11.9 g/dL (11.5-15.4); Immature Granulocytes % 0.1 % (0-4); Red Cell Distribution Width 15.9 % (11.5-14.5)
[2019-07-30 09:23] LABS: Basophils # 0.1 K/mcL (0.0-0.2); Basophils % 0.8 %; Eosinophils # 0.4 K/mcL (0.0-0.6); Eosinophils % 4.7 %; Hematocrit 40.7 % (35.3-44.9); Lymphocytes # 2.8 K/mcL (0.6-4.6); Lymphocytes % 36.7 %; Mean Corpuscular HGB Conc 29.2 g/dL (31.6-35.5); Mean Corpuscular Hemoglobin 21.9 pg (28.0-33.3); Mean Corpuscular Volume 74.8 fL (83.0-100.0); Monocytes # 0.4 K/mcL (0.0-1.3); Monocytes % 4.7 %; Platelet Count 195 K/mcL (140-400); Red Blood Count 5.44 M/mcL (3.82-4.97); White Blood Count 7.5 K/mcL (4.3-11.1)
[2019-07-30 09:41] LABS: Calcium 9.7 mg/dL (8.6-10.3); Potassium 4.5 mEq/L (3.5-5.1)
[2019-07-30 10:45] VITALS: BP 159/93
== END 2019-07-30 14:33 | disposition home or self-care (01) ==
LOC: EMEROOARM 16:22 → 3ANU 16:22 → SUATTDRO 19:29 → 3ANU 19:49
PROVIDERS: ADMIT Family Medicine; ATTEND Internal Medicine

== ENCOUNTER 2019-09-15 19:42 | Observation (INO) ==
[2019-09-15 20:10] LABS: Hemoglobin 13.1 g/dL (11.5-15.4); Immature Granulocytes % 0.3 % (0-4)
[2019-09-15 20:11] LABS: Basophils # 0.1 K/mcL (0.0-0.2); Basophils % 0.5 %; Eosinophils # 0.3 K/mcL (0.0-0.6); Eosinophils % 2.9 %; Hematocrit 43.9 % (35.3-44.9); Immature Platelets 10.3 % (1.1-6.1); Lymphocytes # 3.5 K/mcL (0.6-4.6); Mean Corpuscular HGB Conc 29.8 g/dL (31.6-35.5); Mean Corpuscular Hemoglobin 22.1 pg (28.0-33.3); Monocytes # 0.6 K/mcL (0.0-1.3); Monocytes % 5.9 %; Neutrophils # 6.4 K/mcL (1.6-8.9); Platelet Count 225 K/mcL (140-400); Red Blood Count 5.93 M/mcL (3.82-4.97); Red Cell Distribution Width 16.1 % (11.5-14.5); Segmented Neutrophils % 58.4 %; White Blood Count 10.9 K/mcL (4.3-11.1)
[2019-09-15 20:12] LABS: Prothrombin Time 11.7 Seconds (9.4-12.1)
[2019-09-15 20:14] LABS: Activated Partial Thrombo Time 32.9 Seconds (26.0-36.0)
[2019-09-15 20:29] LABS: BUN/Creatinine Ratio 18 (6-26); Blood Urea Nitrogen 23 mg/dL (6-20); Calcium 10.6 mg/dL (8.6-10.3); Carbon Dioxide 25 mEq/L (23-29); Chloride 99 mEq/L (98-107); Glucose 152 mg/dL (70-105); Osmolality,Calculated 283 (280-300); Sodium 133 mEq/L (136-145); Troponin I < 0.03 ng/mL (< 0.04); eGFR For African Americans 54 (> 60); eGFR For Non-African Americans 44 (> 60)
[2019-09-15] MEDS ORDERED: Ondansetron 4 MG/2 ML VIAL IVP PRN (21:49)
[2019-09-15] MEDS ORDERED: Naloxone 0.4 MG/ML INJ IVP PRN (21:49)
[2019-09-15] MEDS ORDERED: Acetaminophen 325 MG TABLET PO PRN (21:49)
[2019-09-15] MEDS ORDERED: Furosemide 40 MG TABLET PO PRN (22:02)
[2019-09-15] MEDS ORDERED: Fluticasone Propionate Nasal 50 MCG/SPRAY BOTTLE NS PRN (22:02)
[2019-09-15] MEDS ORDERED: hydrOXYzine pamoate 25 MG CAPSULE PO PRN (22:02)
[2019-09-15] MEDS: hydroCHLOROthiazide 25 MG TABLET PO SCH (23:48)
[2019-09-15] MEDS: *HR* OxyCODONE/APAP 5/325 TABLET PO PRN (23:49)
[2019-09-15] MEDS: Venlafaxine XR (24 HR) 37.5 MG CAP.ER.24H PO SCH (23:49)
[2019-09-15] MEDS: Insulin DETEMIR 100 UNIT/ML X5UNITS SQ SCH (23:50)
[2019-09-15] MEDS: BuPROPion XL (24 HR) 150 MG TABLET PO SCH (23:50)
[2019-09-15] MEDS: Insulin LISPRO 300 UNITS/3 ML VIAL SQ SCH (23:53)
[2019-09-16 02:50] LABS: Basophils % 0.5 %; Immature Granulocytes % 0.3 % (0-4); Segmented Neutrophils % 61.8 %
[2019-09-16 02:52] LABS: Basophils # 0.1 K/mcL (0.0-0.2); Eosinophils # 0.3 K/mcL (0.0-0.6); Eosinophils % 2.9 %; Hematocrit 45.5 % (35.3-44.9); Hemoglobin 13.3 g/dL (11.5-15.4); Immature Platelets 9.9 % (1.1-6.1); Lymphocytes # 3.2 K/mcL (0.6-4.6); Lymphocytes % 29.4 %; Mean Corpuscular HGB Conc 29.2 g/dL (31.6-35.5); Mean Corpuscular Hemoglobin 21.8 pg (28.0-33.3); Mean Corpuscular Volume 74.7 fL (83.0-100.0); Monocytes # 0.6 K/mcL (0.0-1.3); Monocytes % 5.1 %; Neutrophils # 6.7 K/mcL (1.6-8.9); Platelet Count 208 K/mcL (140-400); Red Blood Count 6.09 M/mcL (3.82-4.97); Red Cell Distribution Width 16.1 % (11.5-14.5); White Blood Count 10.9 K/mcL (4.3-11.1)
[2019-09-16 03:02] LABS: Bilirubin,Total 0.4 mg/dL (0.3-1.0); Calcium 10.8 mg/dL (8.6-10.3); Globulin 3.9 g/dL (2.4-3.5); Magnesium 1.4 mg/dL (1.6-2.6); Phosphorous 4.2 mg/dL (2.7-4.5); Total Protein 7.9 g/dL (6.4-8.9)
[2019-09-16] MEDS ORDERED: Ondansetron 4 MG/2 ML VIAL IVP ONE (06:56)
[2019-09-16] MEDS ORDERED: *HR* Metoprolol 5 MG/5 ML VIAL IVP ONE (07:39)
[2019-09-16] MEDS: Insulin DETEMIR 100 UNIT/ML X5UNITS SQ SCH (08:16)
[2019-09-16] MEDS: *HR* OxyCODONE/APAP 5/325 TABLET PO PRN (08:16)
[2019-09-16] MEDS: BuPROPion XL (24 HR) 150 MG TABLET PO SCH (08:17)
[2019-09-16] MEDS: Insulin LISPRO 300 UNITS/3 ML VIAL SQ SCH (08:17)
[2019-09-16] MEDS: hydroCHLOROthiazide 25 MG TABLET PO SCH (08:17)
[2019-09-16] MEDS: Venlafaxine XR (24 HR) 37.5 MG CAP.ER.24H PO SCH (08:20)
[2019-09-16] MEDS ORDERED: Cholecalciferol (D-3) 1,000 UNIT (25MCG) TABLET PO SCH (09:00)
[2019-09-16] MEDS ORDERED: Gabapentin 300 MG CAPSULE PO SCH (09:00)
[2019-09-16 12:17] VITALS: BP 158/88
[2019-09-16] MEDS ORDERED: *HR* Promethazine 25 MG/ML VIAL IVP PRN (12:33)
[2019-09-16] MEDS ORDERED: *HR* OxyCODONE/APAP 10/325 TABLET PO ONE (12:34)
== END 2019-09-16 13:51 | disposition home or self-care (01) ==
LOC: 3BNU 19:42 → EMEROOARM 19:42 → 3BNU 21:55
PROVIDERS: ADMIT Student in an Organized Health Care Education/Training Program; ATTEND Student in an Organized Health Care Education/Training Program

== ENCOUNTER 2020-04-06 16:15 | Observation (INO) ==
[2020-04-06] MEDS ORDERED: Orphenadrine 60 MG/2 ML VIAL IVP ONE (16:55)
[2020-04-06 17:28] LABS: Immature Granulocytes % 0.2 % (0-4)
[2020-04-06 17:29] LABS: Basophils # 0.1 K/mcL (0.0-0.2); Basophils % 0.9 %; Eosinophils # 0.4 K/mcL (0.0-0.6); Eosinophils % 4.3 %; Hematocrit 37.5 % (35.3-44.9); Immature Platelets 8.1 % (1.1-6.1); Lymphocytes # 3.7 K/mcL (0.6-4.6); Lymphocytes % 38.4 %; Mean Corpuscular HGB Conc 29.3 g/dL (31.6-35.5); Mean Corpuscular Hemoglobin 21.7 pg (28.0-33.3); Mean Corpuscular Volume 74.1 fL (83.0-100.0); Monocytes # 0.5 K/mcL (0.0-1.3); Monocytes % 5.3 %; Neutrophils # 4.9 K/mcL (1.6-8.9); Platelet Count 240 K/mcL (140-400); Red Blood Count 5.06 M/mcL (3.82-4.97); Red Cell Distribution Width 16.9 % (11.5-14.5); Segmented Neutrophils % 50.9 %; White Blood Count 9.7 K/mcL (4.3-11.1)
[2020-04-06 17:39] LABS: Bilirubin,Total 0.4 mg/dL (0.3-1.0); Calcium 10.1 mg/dL (8.6-10.3); Globulin 3.9 g/dL (2.4-3.5); Potassium 4.2 mEq/L (3.5-5.1); Total Protein 7.9 g/dL (6.4-8.9)
[2020-04-06 17:57] LABS: Bacteria,Urine Few per hpf (None-Few); Bilirubin,Urine Negative (Negative); Blood,Urine Negative (Negative); Clarity,Urine Turbid (Clear); Color,Urine Yellow (Yellow); Glucose,Urine (UA) Normal (Normal); Hyaline Casts,Urine Few per lpf (None Seen); Ketones,Urine Negative (Negative); Leukocyte Esterase,Urine Moderate (Negative); Mucus,Urine Few per lpf (None-Few); Nitrite,Urine Positive (Negative); Protein,Urine 50 mg/dL (Neg-Trace); RBC,Urine 0-3 per hpf (0-3); Specific Gravity,Urine 1.017 (1.010-1.025); Squamous Epithelial Cell,Urine Moderate per hpf (None-Few); Urobilinogen,Urine Normal (Normal); WBC,Urine 30-50 per hpf (0-3)
[2020-04-06 18:22] LABS: Platelet Estimate Normal (Normal)
[2020-04-06] MEDS ORDERED: cefTRIAXone 1,000 MG in Water for inj. (sterile) 10 ML IVP ONE (18:47)
[2020-04-06] MEDS ORDERED: Morphine Sulfate 2 MG/ML SYRINGE IVP ONE (18:47)
[2020-04-06] MEDS ORDERED: 0.9 % Sodium Chloride 1,000 ML IVC ONE (19:22)
[2020-04-06] MEDS ORDERED: Naloxone 0.4 MG/ML INJ IVP PRN (20:05)
[2020-04-06] MEDS ORDERED: Furosemide 40 MG TABLET PO PRN (20:11)
[2020-04-06] MEDS ORDERED: SODIUM CHLORIDE/NAHCO3/KCL/PEG 4,000 ML SOLN.RECON PO ONE (20:26)
[2020-04-06] MEDS: Ringers Solution, Lactated 1,000 ML IVC SCH (22:11)
[2020-04-06] MEDS: Gabapentin 300 MG CAPSULE PO SCH (22:12)
[2020-04-06] MEDS ORDERED: D5% in Water 1,000 ML IVC PRN (22:40)
[2020-04-06] MEDS ORDERED: *HR* Dextrose 50 % in Water (Vial) 50 ML VIAL IVP PRN (22:40)
[2020-04-06] MEDS ORDERED: Dextrose Gel 15 GM/37.5 ML TUBE PO PRN ×2 (22:40)
[2020-04-07] MEDS: Insulin LISPRO 300 UNITS/3 ML VIAL SQ SCH ×4 (03:40→17:41)
[2020-04-07] MEDS: Ringers Solution, Lactated 1,000 ML IVC SCH (04:39)
[2020-04-07] MEDS: Pantoprazole 40 MG VIAL IVP SCH ×2 (05:32→17:45)
[2020-04-07 05:45] LABS: INR 1.1
[2020-04-07 05:51] LABS: Albumin 3.6 g/dL (3.5-5.7); Bilirubin,Total 0.3 mg/dL (0.3-1.0); Calcium 9.5 mg/dL (8.6-10.3); Globulin 3.5 g/dL (2.4-3.5); Hemoglobin 10.3 g/dL (11.5-15.4); Magnesium 1.5 mg/dL (1.6-2.6); Potassium 4.3 mEq/L (3.5-5.1); Total Protein 7.1 g/dL (6.4-8.9)
[2020-04-07 05:53] LABS: Basophils # 0.1 K/mcL (0.0-0.2); Basophils % 0.9 %; Eosinophils # 0.4 K/mcL (0.0-0.6); Eosinophils % 4.2 %; Hematocrit 34.9 % (35.3-44.9); Immature Granulocytes % 0.2 % (0-4); Lymphocytes # 3.1 K/mcL (0.6-4.6); Mean Corpuscular HGB Conc 29.5 g/dL (31.6-35.5); Mean Corpuscular Hemoglobin 22.2 pg (28.0-33.3); Mean Corpuscular Volume 75.2 fL (83.0-100.0); Monocytes # 0.6 K/mcL (0.0-1.3); Monocytes % 6.5 %; Neutrophils # 4.4 K/mcL (1.6-8.9); Platelet Count 201 K/mcL (140-400); Red Blood Count 4.64 M/mcL (3.82-4.97); Red Cell Distribution Width 16.7 % (11.5-14.5); Segmented Neutrophils % 52.2 %; White Blood Count 8.5 K/mcL (4.3-11.1)
[2020-04-07] MEDS: Aspirin 81 MG TAB.CHEW PO SCH (08:43)
[2020-04-07] MEDS: Gabapentin 300 MG CAPSULE PO SCH ×2 (08:43→14:29)
[2020-04-07] MEDS ORDERED: cefTRIAXone 1,000 MG in Water for inj. (sterile) 10 ML IVP SCH (09:00)
[2020-04-07] MEDS ORDERED: SODIUM CHLORIDE/NAHCO3/KCL/PEG 4,000 ML SOLN.RECON PO ONE (17:00)
[2020-04-07] MEDS: Fluticasone Propionate Nasal 50 MCG/SPRAY BOTTLE NS SCH (17:41)
[2020-04-07] MEDS: Gabapentin 400 MG CAPSULE PO SCH (20:53)
[2020-04-08] MEDS: Insulin LISPRO 300 UNITS/3 ML VIAL SQ SCH ×3 (02:00→13:39)
[2020-04-08 05:47] LABS: Hematocrit 39.6 % (35.3-44.9); Hemoglobin 11.5 g/dL (11.5-15.4); Immature Platelets 7.8 % (1.1-6.1); Mean Corpuscular Volume 75.9 fL (83.0-100.0); Platelet Count 231 K/mcL (140-400); Red Blood Count 5.22 M/mcL (3.82-4.97); Red Cell Distribution Width 17.2 % (11.5-14.5); White Blood Count 6.3 K/mcL (4.3-11.1)
[2020-04-08 06:08] LABS: Calcium 9.8 mg/dL (8.6-10.3); Magnesium 1.6 mg/dL (1.6-2.6); Potassium 4.6 mEq/L (3.5-5.1)
[2020-04-08] MEDS: Pantoprazole 40 MG VIAL IVP SCH (06:18)
[2020-04-08] MEDS: Fluticasone Propionate Nasal 50 MCG/SPRAY BOTTLE NS SCH (08:54)
[2020-04-08] MEDS: Aspirin 81 MG TAB.CHEW PO SCH (08:55)
[2020-04-08] MEDS: Gabapentin 400 MG CAPSULE PO SCH ×2 (08:55→14:51)
[2020-04-08] MEDS ORDERED: levoFLOXacin 750 MG/150 ML 750 MG/150 ML BAG IVPB SCH (09:00)
[2020-04-08] MEDS ORDERED: BuPROPion XL (24 HR) 150 MG TABLET PO SCH (09:00)
[2020-04-08 11:24] VITALS: BP 137/92
[2020-04-08] MEDS ORDERED: FLU Vac QV 20-21 (6Month+)/PF 0.5 ML SYRINGE IM ONE (16:20)
[2020-04-09] MEDS ORDERED: Venlafaxine XR (24 HR) 75 MG CAP.ER.24H PO SCH (09:00)
== END 2020-04-08 17:04 | disposition home or self-care (01) ==
LOC: 3ANU 16:15 → EMEROOARM 16:15 → SUATTDRO 21:04 → 3ANU 21:31
PROVIDERS: ADMIT Family Medicine; ATTEND Internal Medicine